=== PATIENT | female | born 1990 | race Caucasian/White ===

== ENCOUNTER 2019-02-05 14:38 | Emergency (ER) | payer MEDICAID ==
[~2019-02-05] VITALS: Ht 167.6 cm; Wt 109.1 kg
[2019-02-05 14:56] VITALS: BP 121/95
[2019-02-05] MEDS ORDERED: AMOX-422 PO (15:18)
== END 2019-02-05 15:34 | disposition home or self-care (01) ==
LOC: ER 14:39
DX: J32.9 Chronic sinusitis, unspecified (principal); Z79.899 Other long term (current) drug therapy
CPT/HCPCS: 99283